=== PATIENT | male | born 1995 | race Caucasian/White ===

== ENCOUNTER 2020-01-24 18:43 | Emergency (ER) | payer OTHER ==
[2020-01-24] MEDS ORDERED: TETANUS & DIPHTHERIA TOX,ADULT 0.5 ML VIAL ONE (19:03)
[2020-01-24] MEDS ORDERED: LIDOCAINE 1% MPF 5 ML VIAL ONE (19:03)
--- NOTE | 2020-01-24 19:12 | ER ---
Nurse's Notes [facility] [place], [place] Name: Derrick Kirkland Age: 24 yrs Sex: Male : 1995 Arrival Date: 01/24/2020 Time: 18:44 Bed 26 Private MD: Diagnosis: Laceration without foreign body of left hand Presentation: 01/23 18:45 Chief complaint: Patient states: " I thought I could jump a fence." small hand ss laceration noted to L hand. No bleeding noted at this time. Unknown last tetanus. Coronavirus screen: Proceed with normal triage. Patient denies a cough. Patient denies shortness of breath or difficulty breathing. Patient denies measured and/or subjective temperature greater than 100.4F prior to today's visit. Patient denies travel on a cruise ship or to a country the [facility] currently lists as an affected area. Patient denies contact with known and/or suspected case of COVID-19. Ebola Screen: Patient denies exposure to infectious person. Patient denies travel to an Ebola-affected area in the 21 days before illness onset. Initial Sepsis Screen: Does the patient meet any 2 criteria? No. Patient's initial sepsis screen is negative. Does the patient have a suspected source of infection? No. Patient's initial sepsis screen is negative. Risk Assessment: Do you want to hurt yourself or someone else? Patient reports no desire to harm self or others. Onset of symptoms was January 24, 2020. 18:45 Method Of Arrival: Ambulatory ss 18:45 Acuity: DONAL 5 ss Triage Assessment: 19:00 General: Appears in no apparent distress. Historical: - Allergies: 18:47 No Known Allergies; ss - Home Meds: 18:47 None [Active]; ss - PMHx: 18:47 None; ss - PSHx: 18:47 None; ss - Immunization history:: Adult Immunizations unknown. - Social history:: Smoking status: Patient denies any tobacco usage or history of. - Family history:: not pertinent. Screenin:00 Fall Risk None identified. 23:11 Abuse screen: Denies threats or abuse. Nutritional screening: No deficits noted. Tuberculosis screening: No symptoms or risk factors identified. Assessment: 19:00 General: Appears in no apparent distress. Behavior is calm, cooperative, appropriate for age. Pain: Denies pain. Neuro: Level of Consciousness is awake, alert, obeys commands, Oriented to person, place, time, situation, Appropriate for age. Cardiovascular: Capillary refill < 3 seconds Patient's skin is warm and dry. Respiratory: Airway is patent Respiratory effort is even, unlabored. Derm: Skin laceration to left palm of hand Wound noted palm of left hand Wound is laceration. Musculoskeletal: Circulation, motion, and sensation intact. Capillary refill < 3 seconds. Vital Signs: 18:45 Resp 14; Weight 99.79 kg; Height 5 ft. 11 in. (180.34 cm); Pain 0/10; ss 18:45 Body Mass Index 30.68 (99.79 kg, 180.34 cm) ED Course: 18:44 Patient arrived in ED. 18:44 Joel Campa MD is Attending Physician. [facility] 18:47 Triage completed. 18:47 Arm band placed on right wrist. 18:53 Arlene Reyes, RN is Primary Nurse. 19:00 Patient has correct armband on for positive identification. Bed in low position. Call light in reach. 19:00 Assist provider with laceration repair on left hand that was 2.5 cm. or less using sutures. Set up tray. Performed by Joel Campa MD Dressed with Kerlix, Neosporin, Patient tolerated well. Patient did not have IV access during this emergency room visit. 19:43 Hand Left 2 View XRAY In Process Unspecified. EDMS Administered Medications: 18:55 Drug: Tetanus-Diphtheria Toxoid Adult 0.5 ml {Programming Internship: [email or web address]. Exp: 08/26/2021. Lot #: [id number]. } Route: IM; Site: right deltoid; 23:09 Follow up: Response: No adverse reaction 19:30 Drug: Neosporin Ointment 1 application Route: Topical; Site: affected area; 19:30 Drug: Lidocaine-Epinephrine -1%: (1:100,000) 3 ml {Note: Administered per dr jovanni mcmanus for lac repair.} Volume: 20 ml; Route: Infiltration; 19:30 Drug: KeFLEX 500 mg Route: PO; 23:09 Follow up: Response: Medication administered at discharge. Outcome: 19:12 Discharge ordered by . [facility] 19:45 Discharged to home ambulatory. 19:45 Condition: good 19:45 Discharge instructions given to patient, Instructed on discharge instructions, follow up and referral plans. medication usage, Demonstrated understanding of instructions, follow-up care, medications, wound care, Prescriptions given X 1. 19:59 Patient left the ED. Signatures: Dispatcher [employer] EDJoel Anand MD MD cha Smirch, Shelby, Mounika Parham RN, RN RN vc Harris, Amy, RN RN
--- NOTE | 2020-01-24 19:12 | EDPHYS ---
Physician Documentation [facility] [place] [facility] Name: Derrick Kirkland Age: 24 yrs Sex: Male : 1995 Arrival Date: 01/24/2020 Time: 18:44 Bed 26 Private MD: ED Physician Joel Campa HPI: 01/23 19:05 This 24 yrs old Male presents to ER via Ambulatory with complaints of Hand reshma Injury. 19:05 The patient or guardian reports decreased range of motion. The complaints affect the reshma left hand diffusely. Context: The problem was sustained at work, at a jumping a fence. Onset: The symptoms/episode began/occurred just prior to arrival. Modifying factors: The symptoms are alleviated by elevation, the symptoms are aggravated by movement. Associated signs and symptoms: The patient has no apparent associated signs or symptoms. Severity of symptoms: At their worst the symptoms were mild, in the emergency department the symptoms are unchanged. The patient has not experienced similar symptoms in the past. Historical: - Allergies: 18:47 No Known Allergies; ss - Home Meds: 18:47 None [Active]; ss - PMHx: 18:47 None; ss - PSHx: 18:47 None; ss - Immunization history:: Adult Immunizations unknown. - Social history:: Smoking status: Patient denies any tobacco usage or history of. - Family history:: not pertinent. ROS: 19:05 Constitutional: Negative for fever, chills, and weight loss, Eyes: Negative for injury, reshma pain, redness, and discharge, ENT: Negative for injury, pain, and discharge, Neck: Negative for injury, pain, and swelling, Cardiovascular: Negative for chest pain, palpitations, and edema, Respiratory: Negative for shortness of breath, cough, wheezing, and pleuritic chest pain, Abdomen/GI: Negative for abdominal pain, nausea, vomiting, diarrhea, and constipation, Back: Negative for injury and pain, : Negative for injury, bleeding, discharge, and swelling, Skin: Negative for injury, rash, and discoloration, Neuro: Negative for headache, weakness, numbness, tingling, and seizure, Psych: Negative for depression, anxiety, suicide ideation, homicidal ideation, and hallucinations, Allergy/Immunology: Negative for hives, rash, and allergies, Endocrine: Negative for neck swelling, polydipsia, polyuria, polyphagia, and marked weight changes. 19:05 MS/extremity: Positive for laceration, pain, of the palm of left hand. Exam: 19:05 Constitutional: This is a well developed, well nourished patient who is awake, alert, reshma and in no acute distress. Head/Face: Normocephalic, atraumatic. Eyes: Pupils equal round and reactive to light, extra-ocular motions intact. Lids and lashes normal. Conjunctiva and sclera are non-icteric and not injected. Cornea within normal limits. Periorbital areas with no swelling, redness, or edema. ENT: Nares patent. No nasal discharge, no septal abnormalities noted. Tympanic membranes are normal and external auditory canals are clear. Oropharynx with no redness, swelling, or masses, exudates, or evidence of obstruction, uvula midline. Mucous membranes moist. Neck: Trachea midline, no thyromegaly or masses palpated, and no cervical lymphadenopathy. Supple, full range of motion without nuchal rigidity, or vertebral point tenderness. No Meningismus. Chest/axilla: Normal chest wall appearance and motion. Nontender with no deformity. No lesions are appreciated. Cardiovascular: Regular rate and rhythm with a normal S1 and S2. No gallops, murmurs, or rubs. Normal PMI, no JVD. No pulse deficits. Respiratory: Lungs have equal breath sounds bilaterally, clear to auscultation and percussion. No rales, rhonchi or wheezes noted. No increased work of breathing, no retractions or nasal flaring. Abdomen/GI: Soft, non-tender, with normal bowel sounds. No distension or tympany. No guarding or rebound. No evidence of tenderness throughout. Back: No spinal tenderness. No costovertebral tenderness. Full range of motion. Skin: Warm, dry with normal turgor. Normal color with no rashes, no lesions, and no evidence of cellulitis. Neuro: Awake and alert, GCS 15, oriented to person, place, time, and situation. Cranial nerves II-XII grossly intact. Motor strength 5/5 in all extremities. Sensory grossly intact. Cerebellar exam normal. Normal gait. Psych: Awake, alert, with orientation to person, place and time. Behavior, mood, and affect are within normal limits. 19:05 Musculoskeletal/extremity: Extremities: noted in the palm of left hand: decreased ROM, laceration, pain. Vital Signs: 18:45 Resp 14; Weight 99.79 kg; Height 5 ft. 11 in. (180.34 cm); Pain 0/10; ss 18:45 Body Mass Index 30.68 (99.79 kg, 180.34 cm) ss Laceration: 19:05 Wound Repair of 1cm ( 0.4in ) subcutaneous laceration to left hand and palm of left reshma hand. Irregularly shaped.. Skin/tissue flap noted.. Distal neuro/vascular/tendon intact. Anesthesia: Local anesthetic administered with 5 mls of 1% lidocaine w/ Epi. Wound prep: Simple cleansing by ri. Skin closed with 2 2-0 Prolene using interrupted sutures and sterile technique. Dressed with Neosporin, non-adherent dressing. Patient tolerated well. MDM: 18:44 Patient medically screened. [facility] 19:05 Data reviewed: vital signs, nurses notes, radiologic studies, plain films. [facility] 01/23 19:10 Order name: Hand Left 2 View XRAY [facility] 01/23 18:45 Order name: Wound dressing; Complete Time: 23:05 [facility] 01/23 19:05 Order name: Prolene, Sutures; Complete Time: 19:18 [facility] 01/23 19:05 Order name: Dressing - Wound; Complete Time: 23:06 [facility] 01/23 19:05 Order name: Gloves, Sterile; Complete Time: 23:06 [facility] 01/23 19:05 Order name: Setup Suture Tray; Complete Time: 23:06 [facility] Administered Medications: 18:55 Drug: Tetanus-Diphtheria Toxoid Adult 0.5 ml {Seed Tester: [employer]. Exp: 08/26/2021. Lot #: [id number]. } Route: IM; Site: right deltoid; 23:09 Follow up: Response: No adverse reaction 19:30 Drug: Neosporin Ointment 1 application Route: Topical; Site: affected area; 19:30 Drug: Lidocaine-Epinephrine -1%: (1:100,000) 3 ml {Note: Administered per dr jovanni mcmanus for lac repair.} Volume: 20 ml; Route: Infiltration; 19:30 Drug: KeFLEX 500 mg Route: PO; 23:09 Follow up: Response: Medication administered at discharge. Disposition: 01/24/20 19:12 Discharged to Home. Impression: Laceration without foreign body of left hand. - Condition is Stable. - Discharge Instructions: Laceration Care, Adult, Laceration Care, Adult, [id number]. - Prescriptions for Keflex 500 mg Oral Capsule - take 1 capsule by ORAL route every 6 hours for 7 days; 28 capsule. - Medication Reconciliation Form, Thank You Letter, Antibiotic Education, Prescription Opioid Use form. - Follow up: Private Physician; When: 5 - 6 days; Reason: Recheck today's complaints, Re-evaluation by your physician. - Problem is new. - Symptoms have improved. Signatures: Dispatcher [employer] EDMS Joel Campa MD MD cha Smirch, Shelby RN RN ss Mounika Pace RN RN Arlene Hutchins RN RN Corrections: (The following items were deleted from the chart) 19:59 19:12 01/24/2020 19:12 Discharged to Home. Impression: Laceration without foreign body vc of left hand. Condition is Stable. Forms are Medication Reconciliation Form, Thank You Letter, Antibiotic Education, Prescription Opioid Use. Follow up: Private Physician; When: 5 - 6 days; Reason: Recheck today's complaints, Re-evaluation by your physician. Problem is new. Symptoms have improved. reshma
[2020-01-24] MEDS ORDERED: LIDOCAINE 1% W/EPI 1:100,000 MDV 20 ML VIAL ONE (19:28)
[2020-01-24] MEDS ORDERED: CEPHALEXIN 250 MG CAP ONE (19:33)
--- NOTE | 2020-01-24 19:57 | RAD REPORT ---
EXAM DESCRIPTION: RAD - Hand Left 2 View - 01/24/2020 7:42 pm CLINICAL HISTORY: Left hand pain status post injury FINDINGS: No fracture or dislocation is seen. A limited two-view series was obtained
== END 2020-01-24 19:59 | disposition home or self-care (01) ==
LOC: ER 18:43
PROC: 0JQK0ZZ Repair Left Hand Subcutaneous Tissue and Fascia, Open Approach (ICD-10-PCS; principal; 2020-01-24)
DX: S61.412A Laceration without foreign body of left hand, initial encounter (principal); W45.8XXA Other foreign body or object entering through skin, initial encounter; Y93.89 Activity, other specified; Y92.89 Other specified places as the place of occurrence of the external cause; Y99.8 Other external cause status
CPT/HCPCS: 90471; 90714; 99283

== ENCOUNTER 2020-09-28 00:46 | Emergency (ER) | payer OTHER ==
--- OUTSIDE RECORDS SUMMARY | 2020-09-28 00:49 | XMS REPORT | Continuity of Care Document ---
:1995 Author Organization [facility] t Address [address] [place] [address] Care Team Providers Name Role Phone Unavailable Unavailable Unavailable Problems This patient has no known problems. Allergies, Adverse Reactions, Alerts This patient has no known allergies or adverse reactions. Medications This patient has no known medications. Procedures This patient has no known procedures. Results This patient has no known results.
[2020-09-28] MEDS ORDERED: ONDANSETRON 4 MG/2 ML VIAL ONE (01:33)
[2020-09-28] MEDS ORDERED: MORPHINE 4 MG/ML SYR ONE (01:33)
[2020-09-28] MEDS ORDERED: NA CHLORIDE 0.9% 1,000 ML ONE (01:33)
[2020-09-28] MEDS ORDERED: KETOROLAC 30 MG/ML INJ ONE (01:48)
[2020-09-28 02:12] LABS: Absolute Lymphocytes (CBC) 3.6 K/uL (0.7-4.9); Basophils % 0.7 % (0-1.3); Hematocrit 43.6 % (39.6-49.0); Lymphocytes % 33.1 % (15.3-44.8); MPV 10.9 fL (7.6-11.3); RBC Red Blood Cell Count 4.79 M/uL (4.33-5.43)
[2020-09-28 02:32] LABS: Urine Blood 3+ (NEG); Urine Glucose NEGATIVE (NEG); Urine Protein 1+ (NEG); Urine Specific Gravity >1.030 (1.005-1.030); Urine pH 5.5 (5.0-7.0)
[2020-09-28 02:57] LABS: ALT/SGPT 35 U/L (12-78); AST/SGOT 17 U/L (15-37); Albumin 3.8 g/dL (3.4-5.0); BUN Blood Urea Nitrogen 19 mg/dL (7-18); Bicarbonate 26 mmol/L (21-32); Bilirubin Direct < 0.1 mg/dL (0-0.2); Bilirubin Total 0.4 mg/dL (0.2-1.0); Glucose Level 106 mg/dL (74-106); Lipase 117 U/L (73-393); Potassium 3.6 mmol/L (3.5-5.1); Protein, Total 7.3 g/dL (6.4-8.2); Sodium Level 143 mmol/L (136-145)
[2020-09-28 02:59] LABS: Alkaline Phosphatase ND U/L (45-117)
--- NOTE | 2020-09-28 03:22 | ER ---
Nurse's Notes [facility] [place], [place] Name: Derrick Kirkland Age: 25 yrs Sex: Male : 1995 Arrival Date: 09/28/2020 Time: 00:47 Bed 6 Private MD: Diagnosis: Ureterolithiasis Presentation: 09/28 01:13 Chief complaint: Patient states: both flank pain ,abdominal pain and vomiting today. mg2 Coronavirus screen: Client denies travel out of the [place] in the last 14 days. Ebola Screen: No symptoms or risks identified at this time. Initial Sepsis Screen: Does the patient meet any 2 criteria? No. Patient's initial sepsis screen is negative. Does the patient have a suspected source of infection? No. Patient's initial sepsis screen is negative. Risk Assessment: Do you want to hurt yourself or someone else? Patient reports no desire to harm self or others. Onset of symptoms was September 28, 2020. 01:13 Method Of Arrival: Ambulatory mg2 01:13 Acuity: DONAL 3 mg2 Triage Assessment: 01:15 General: Behavior is restless. mg2 Historical: - Allergies: 01:15 No Known Allergies; mg2 - Home Meds: 01:15 None [Active]; mg2 - PMHx: 01:15 None; mg2 - PSHx: 01:15 None; mg2 - Immunization history:: Flu vaccine status is unknown. - Social history:: Smoking status: Patient denies any tobacco usage or history of. Patient/guardian denies using alcohol, street drugs, IV drugs. Screenin:50 Abuse screen: Denies threats or abuse. Denies injuries from another. Nutritional wh screening: No deficits noted. Tuberculosis screening: No symptoms or risk factors identified. Fall Risk None identified. Assessment: 01:48 General: Appears in no apparent distress. uncomfortable, Behavior is cooperative, wh appropriate for age, listless. Pain: Complains of pain in left lower quadrant Pain does not radiate. Pain currently is 9 out of 10 on a pain scale. Pain began 1 hour ago. Neuro: Level of Consciousness is awake, alert, obeys commands, Oriented to person, place, time, situation, Appropriate for age. Cardiovascular: Capillary refill < 3 seconds. Respiratory: Airway is patent Respiratory effort is even, unlabored, Respiratory pattern is regular, symmetrical. GI: Abdomen is flat, non-distended, Abd is soft Reports lower abdominal pain. : No signs and/or symptoms were reported regarding the genitourinary system. EENT: No signs and/or symptoms were reported regarding the EENT system. Derm: Skin is intact, is healthy with good turgor, Skin is pink, warm \T\ dry. normal. Musculoskeletal: Circulation, motion, and sensation intact. 03:00 Reassessment: Patient appears in no apparent distress at this time. Patient is alert, rr5 oriented x 3, equal unlabored respirations, skin warm/dry/pink. awaiting for result Patient states feeling better. Patient states symptoms have improved. 03:30 Reassessment: Patient appears in no apparent distress at this time. Patient is alert, rr5 oriented x 3, equal unlabored respirations, skin warm/dry/pink. discharge instruction given and explained without complaints made. Vital Signs: 01:13 Pulse 99; Resp 18; Temp 98.4; Pulse Ox 100% on R/A; Weight 108.86 kg; Height 5 ft. 11 mg2 in. (180.34 cm); 01:50 BP 117 / 76; Pulse 69; Resp 18; Pulse Ox 96% on R/A; wh 03:10 BP 94 / 60; Pulse 60; Resp 19; Pulse Ox 99% ; rr5 01:13 Body Mass Index 33.47 (108.86 kg, 180.34 cm) mg2 ED Course: 00:47 Patient arrived in ED. cl3 01:10 Rafael Samuels, ELISSA is Primary Nurse. rr5 01:12 José Miguel Georges MD is Attending Physician. mh7 01:15 Triage completed. mg2 01:15 Arm band placed on. mg2 01:20 Inserted saline lock: 20 gauge in right antecubital area, using aseptic technique. rr5 01:50 Patient has correct armband on for positive identification. Placed in gown. Bed in low wh position. Call light in reach. Side rails up X 1. Pulse ox on. NIBP on. 02:10 CT Stone Protocol In Process Unspecified. EDMS 03:21 Titus Dodson MD is Referral Physician. mh7 03:37 No provider procedures requiring assistance completed. IV discontinued, intact, wh bleeding controlled, No redness/swelling at site. Administered Medications: 01:25 Drug: Zofran (Ondansetron) 4 mg Route: IVP; Site: right forearm; rr5 02:19 Follow up: Response: No adverse reaction; Nausea is decreased 01:29 Drug: NS 0.9% 1000 ml Route: IV; Rate: 1000 ml; Site: right antecubital; rr5 02:19 Follow up: Response: No adverse reaction; IV Status: Completed infusion 01:29 Drug: morphine 4 mg {Note: rass 0.} Route: IVP; Site: right forearm; rr5 02:19 Follow up: Response: No adverse reaction; Pain is decreased; RASS: Alert and Calm (0) 01:36 Drug: TORadol 30 mg Route: IVP; Site: right antecubital; 02:19 Follow up: Response: No adverse reaction; Pain is decreased Outcome: 03:22 Discharge ordered by . [email or web address] 03:37 Discharged to home ambulatory. 03:37 Condition: stable 03:37 Discharge instructions given to patient, Instructed on discharge instructions, follow up and referral plans. no drinking with medication, no driving heavy equipment, medication usage, POC Demonstrated understanding of instructions, follow-up care, medications, POC Prescriptions given X 4. 03:38 Patient left the ED. Signatures: Dispatcher [employer] EDMS Julisa Padilla RN RN Robby Hernández RN RN mg2 Rafael Samuels RN RN rr5 Nikko David cl3 José Miguel Georges MD MD mh7 Corrections: (The following items were deleted from the chart) 01:15 01:13 Chief complaint: Patient states: both flank pain and vomiting today. mg2 mg2
--- NOTE | 2020-09-28 03:23 | EDPHYS ---
Physician Documentation [facility] Name: Derrick Kirkland Age: 25 yrs Sex: Male : 1995 Arrival Date: 09/28/2020 Time: 00:47 Bed 6 Private MD: ED Physician José Miguel Georges HPI: 09/28 01:37 This 25 yrs old Male presents to ER via Ambulatory with complaints of Side mh7 Pain. 01:37 The patient presents with abdominal pain in the left lower quadrant. Onset: The mh7 symptoms/episode began/occurred today, at 00:00. The symptoms radiate to the left flank. Associated signs and symptoms: Pertinent positives: nausea and vomiting, Pertinent negatives: anorexia, blood in stools, chest pain, constipation, diarrhea, dysuria, fever, headache, hematuria, palpitations, shortness of breath, testicular pain, vomiting blood. The symptoms are described as constant, vague, waxing/waning. Modifying factors: The symptoms are alleviated by nothing, the symptoms are aggravated by nothing. Severity of pain: At its worst the pain was moderate today, in the emergency department the pain is unchanged. Historical: - Allergies: 01:15 No Known Allergies; mg2 - Home Meds: 01:15 None [Active]; mg2 - PMHx: 01:15 None; mg2 - PSHx: 01:15 None; mg2 - Immunization history:: Flu vaccine status is unknown. - Social history:: Smoking status: Patient denies any tobacco usage or history of. Patient/guardian denies using alcohol, street drugs, IV drugs. ROS: 01:37 Constitutional: Negative for fever, chills, and weight loss, Eyes: Negative for injury, mh7 pain, redness, and discharge, ENT: Negative for injury, pain, and discharge, Neck: Negative for injury, pain, and swelling, Cardiovascular: Negative for chest pain, palpitations, and edema, Respiratory: Negative for shortness of breath, cough, wheezing, and pleuritic chest pain, : Negative for injury, bleeding, discharge, and swelling, MS/Extremity: Negative for injury and deformity, Skin: Negative for injury, rash, and discoloration, Neuro: Negative for headache, weakness, numbness, tingling, and seizure, Psych: Negative for depression, anxiety, suicide ideation, homicidal ideation, and hallucinations, Allergy/Immunology: Negative for hives, rash, and allergies, Endocrine: Negative for neck swelling, polydipsia, polyuria, polyphagia, and marked weight changes, Hematologic/Lymphatic: Negative for swollen nodes, abnormal bleeding, and unusual bruising. Exam: 01:37 Head/Face: Normocephalic, atraumatic. Eyes: Pupils equal round and reactive to light, mh7 extra-ocular motions intact. Lids and lashes normal. Conjunctiva and sclera are non-icteric and not injected. Cornea within normal limits. Periorbital areas with no swelling, redness, or edema. Neck: Trachea midline, no thyromegaly or masses palpated, and no cervical lymphadenopathy. Supple, full range of motion without nuchal rigidity, or vertebral point tenderness. No Meningismus. Chest/axilla: Normal chest wall appearance and motion. Nontender with no deformity. No lesions are appreciated. Cardiovascular: Regular rate and rhythm with a normal S1 and S2. No gallops, murmurs, or rubs. Normal PMI, no JVD. No pulse deficits. Respiratory: Lungs have equal breath sounds bilaterally, clear to auscultation and percussion. No rales, rhonchi or wheezes noted. No increased work of breathing, no retractions or nasal flaring. 01:37 Skin: Warm, dry with normal turgor. Normal color with no rashes, no lesions, and no evidence of cellulitis. MS/ Extremity: Pulses equal, no cyanosis. Neurovascular intact. Full, normal range of motion. Neuro: Awake and alert, GCS 15, oriented to person, place, time, and situation. Cranial nerves II-XII grossly intact. Motor strength 5/5 in all extremities. Sensory grossly intact. Cerebellar exam normal. Normal gait. Psych: Awake, alert, with orientation to person, place and time. Behavior, mood, and affect are within normal limits. 01:37 Constitutional: The patient appears in no acute distress, alert, awake, uncomfortable. 01:37 Abdomen/GI: Inspection: abdomen appears normal, Bowel sounds: normal, in all quadrants, Palpation: moderate abdominal tenderness, in the left lower quadrant, Rectal exam: the exam is deferred, because of patient request, Indicators: McBurney's point is not tender, Albrecht's sign is negative, Rovsing's sign is negative, Obturator sign is negative, Psoas sign is negative, Liver: no appreciated palpable abnormalities, Hernia: not appreciated. 01:37 Back: ROM is normal, normal spinal alignment noted, CVA tenderness, that is moderate, is noted on the left, muscle spasm, is not present. Vital Signs: 01:13 Pulse 99; Resp 18; Temp 98.4; Pulse Ox 100% on R/A; Weight 108.86 kg; Height 5 ft. 11 mg2 in. (180.34 cm); 01:50 BP 117 / 76; Pulse 69; Resp 18; Pulse Ox 96% on R/A; wh 03:10 BP 94 / 60; Pulse 60; Resp 19; Pulse Ox 99% ; rr5 01:13 Body Mass Index 33.47 (108.86 kg, 180.34 cm) mg2 MDM: 03:20 Differential diagnosis: bowel obstruction, diverticulitis, non-specific abd pain, mh7 Ureterolithiasis, urinary tract infection. Data reviewed: vital signs, nurses notes, lab test result(s), CBC, electrolytes, urinalysis, radiologic studies, CT scan. Data interpreted: Pulse oximetry: on room air is 99 %. Interpretation: normal. Counseling: I had a detailed discussion with the patient and/or guardian regarding: the historical points, exam findings, and any diagnostic results supporting the discharge/admit diagnosis, lab results, radiology results, the need for outpatient follow up, a urologist, to return to the emergency department if symptoms worsen or persist or if there are any questions or concerns that arise at home. Response to treatment: the patient's symptoms have resolved after treatment, the patient's blood pressure is in an acceptable range, mental status has returned to baseline, the patient no longer shows bradycardia, the patient is not short of breath, the patient is not tachycardic, the patient's pain is gone, the patient's temperature has normalized. 03:22 Patient medically screened. 7 09/28 01:10 Order name: Basic Metabolic Panel; Complete Time: 02:59 rr5 09/28 01:10 Order name: CBC with Diff; Complete Time: 02:59 rr5 09/28 01:10 Order name: Hepatic Function; Complete Time: 02:59 rr5 09/28 01:10 Order name: Lipase; Complete Time: 02:59 rr5 09/28 01:17 Order name: CT Stone Protocol 7 09/28 02:26 Order name: Urine Dipstick--Ancillary (enter results); Complete Time: 02:59 mw2 09/28 01:10 Order name: IV Saline Lock; Complete Time: 01:26 rr5 09/28 01:10 Order name: Labs collected and sent; Complete Time: 01:26 [facility] 09/28 01:17 Order name: Urine Dipstick-Ancillary (obtain specimen); Complete Time: 02:20 [facility] Administered Medications: 01:25 Drug: Zofran (Ondansetron) 4 mg Route: IVP; Site: right forearm; rr5 02:19 Follow up: Response: No adverse reaction; Nausea is decreased 01:29 Drug: NS 0.9% 1000 ml Route: IV; Rate: 1000 ml; Site: right antecubital; rr5 02:19 Follow up: Response: No adverse reaction; IV Status: Completed infusion 01:29 Drug: morphine 4 mg {Note: rass 0.} Route: IVP; Site: right forearm; rr5 02:19 Follow up: Response: No adverse reaction; Pain is decreased; RASS: Alert and Calm (0) 01:36 Drug: TORadol 30 mg Route: IVP; Site: right antecubital; 02:19 Follow up: Response: No adverse reaction; Pain is decreased Disposition: 09/28/20 03:22 Discharged to Home. Impression: Ureterolithiasis. - Condition is Stable. - Discharge Instructions: Kidney Stones, [id number]. - Prescriptions for Zofran ODT 4 mg Oral tablet,disintegrating - place 1 tablet by TRANSLINGUAL route every 8 hours As needed; 6 tablet. ketorolac 10 mg Oral tablet - take 1 tablet by ORAL route every 8 hours As needed not to exceed 40 mg in 24hrs; 15 tablet. Tylenol- Codeine #3 300-30 mg Oral Tablet - take 2 tablets by ORAL route every 6 hours As needed; 20 tablet. Flomax 0.4 mg Oral Capsule, Sust. Release 24 hr - take 1 capsule by ORAL route once daily 1/2 hour following the same meal each day; 7 capsule. - Work release form, Medication Reconciliation Form, Thank You Letter, Antibiotic Education, Prescription Opioid Use form. - Follow up: Private Physician; When: 1 - 2 days; Reason: Worsening of condition, Recheck today's complaints, Continuance of care, Re-evaluation by your physician. Follow up: Titus Dodson MD; When: 1 - 2 days; Reason: Worsening of condition, Recheck today's complaints. - Problem is new. - Symptoms have improved. Signatures: Dispatcher [employer] EDMS Julisa Padilla RN RN Robby Hernández RN RN [facility] Rafael Samuels RN RN 5 José Miguel Georges MD MD mh7 Corrections: (The following items were deleted from the chart) 03:38 03:22 09/28/2020 03:22 Discharged to Home. Impression: Ureterolithiasis. Condition is wh Stable. Forms are Medication Reconciliation Form, Thank You Letter, Antibiotic Education, Prescription Opioid Use. Follow up: Private Physician; When: 1 - 2 days; Reason: Worsening of condition, Recheck today's complaints, Continuance of care, Re-evaluation by your physician. Follow up: Titus Dodson; When: 1 - 2 days; Reason: Worsening of condition, Recheck today's complaints. Problem is new. Symptoms have improved. mh7
[2020-09-28 03:47] VITALS: TEMP 98.4
[2020-09-28 03:49] VITALS: BP 94/60; O2SAT 99
--- NOTE | 2020-09-28 12:29 | RAD REPORT ---
EXAM DESCRIPTION: CT - Stone Protocol - 09/28/2020 6:47 am COMPARISON: None. CLINICAL HISTORY: [facility] MAIN Abd pain;Flank pain TECHNIQUE: CT of the abdomen and pelvis was acquired without IV contrast material, according to the renal stone protocol. Coronal and sagittal reconstructions were obtained. Automated exposure contro l was utilized on this examination as a dose lowering technique. FINDINGS: Lung bases: Clear. *Limited evaluation of the solid organs due to lack of IV contrast. Liver: Normal. Gallbladder and biliary: Normal gallbladder. Unremarkable biliary tree. Pancreas: Normal. Spleen: Normal. Adrenal glands: Normal. Kidneys and ureters: There is a 2 mm obstructing calculus of the distal left ureter with minimal left hydronephrosis. The right kidney is normal. Stomach and Small Bowel: The stomach and small bowel are normal. Urinary bladder: Normal. Prostate/Male Urogenital: Normal. Colon and Appendix: The colon is unremarkable. No evidence of appendicitis. Peritoneal cavity: No ascites or free air. Retroperitoneum and lymph nodes: Normal. Vascular: Normal. Musculoskeletal and soft tissues: Soft tissues are unremarkable. No aggressive bone lesions. No com pression fracture. IMPRESSION: 2 mm obstructing calculus of the distal left ureter with minimal left hydronephrosis. Electronically signed by: Maikel Mackenzie MD 09/28/2020 2:19 AM CDT Due to temporary technical issues with the PACS/Fluency reporting system, reports are being signed by the in house radiologists without review as a courtesy to insure prompt reporting. The interpreting radiologist is fully responsible for the content of the report.
== END 2020-09-28 03:38 | disposition home or self-care (01) ==
LOC: ER 00:46
DX: N20.1 Calculus of ureter (principal)
CPT/HCPCS: 85025; 80048; 36415; 80076; 81003; 83690; 76377; 74176; 99284; J2405; J7030

== ENCOUNTER 2021-03-01 20:08 | Emergency (ER) | payer OTHER ==
--- OUTSIDE RECORDS SUMMARY | 2021-03-01 20:10 | XMS REPORT | Continuity of Care Document ---
:[address] [facility] t Address [address] [place] [address] Care Team Providers Name Role Phone Unavailable Unavailable Unavailable Problems This patient has no known problems. Allergies, Adverse Reactions, Alerts This patient has no known allergies or adverse reactions. Medications This patient has no known medications. Procedures This patient has no known procedures. Results This patient has no known results.
[2021-03-01] MEDS ORDERED: ACETAMINOPHEN 500 MG TAB ONE (21:04)
--- NOTE | 2021-03-01 22:13 | EDPHYS ---
Physician Documentation [facility] Name: Derrick Kirkland Age: 25 yrs Sex: Male : 1995 Arrival Date: 03/01/2021 Time: 20:11 Bed Waiting Private MD: ED Physician José Miguel Georges HPI: 03/01 22:11 This 25 yrs old Male presents to ER via Ambulatory with complaints of Fever, jmm Weakness. 22:11 Onset: The symptoms/episode began/occurred gradually, 5 day(s) ago. Modifying factors: jmm The patient has had contact with sick spouse. Associated signs and symptoms:. Is a 25-year-old male no chronic medical conditions presents emerged part with complaints of cough, weakness, fatigue beginning approximately 5 days ago.. Historical: - Allergies: 20:35 No Known Allergies; kg - Home Meds: 20:35 None [Active]; kg - PMHx: 20:35 None; kg - PSHx: 20:35 None; kg - Immunization history:: Adult Immunizations not immunized, Client reports having NOT received the Covid vaccine. - Social history:: Smoking status: Patient denies any tobacco usage or history of. ROS: 22:11 Constitutional: Positive for body aches, fever, malaise. jmm 22:11 Respiratory: Positive for cough. 22:11 All other systems are negative. Exam: 22:11 Constitutional: This is a well developed, well nourished patient who is awake, alert, jmm and in no acute distress. Head/Face: atraumatic. Eyes: EOMI, no conjunctival erythema appreciated ENT: Moist Mucus Membranes Neck: Trachea midline, Supple Chest/axilla: Normal chest wall appearance and motion. Cardiovascular: Regular rate and rhythm. No edema appreciated Respiratory: Normal respirations, no respiratory distress appreciated Abdomen/GI: Non distended, soft Back: Normal ROM Skin: General appearance color normal MS/ Extremity: Moves all extremities, no obvious deformities appreciated, no edema noted to the lower extremities Neuro: Awake and alert, normal gait Psych: Behavior is normal, Mood is normal, Patient is cooperative and pleasant Vital Signs: 20:34 BP 118 / 79; Pulse 96; Resp 20; Temp 101.1(O); Pulse Ox 98% on R/A; Weight 108.86 kg kg (R); Height 5 ft. 11 in. (180.34 cm) (R); Pain 0/10; 22:15 Temp 99.4(O); kg 20:34 Body Mass Index 33.47 (108.86 kg, 180.34 cm) kg MDM: 22:08 Patient medically screened. sarah 22:12 Data reviewed: vital signs, nurses notes. Counseling: I had a detailed discussion with sarah the patient and/or guardian regarding: the historical points, exam findings, and any diagnostic results supporting the discharge/admit diagnosis, lab results, the need for outpatient follow up, to return to the emergency department if symptoms worsen or persist or if there are any questions or concerns that arise at home. ED course: Patient is alert and nontoxic in appearance in the ER. I discussed all labs and imaging studies with the patient. Patient will follow up with their primary care provider. Patient understood and agrees with plan of care.. 03/01 20:38 Order name: Influenza Screen (A ; Complete Time: 00:45 EDMS 03/01 22:00 Order name: SARS-COV-2 RT PCR; Complete Time: 00:45 EDMS Administered Medications: 20:42 Drug: Tylenol 500 mg Route: PO; kg 22:15 Follow up: Response: No adverse reaction; Temperature is decreased kg 20:42 Drug: Tylenol 500 mg Route: PO; kg 22:15 Follow up: Response: Temperature is decreased kg Disposition: 03/02 03:18 Co-signature as Attending Physician, José Miguel Georges MD. mh7 Disposition Summary: 03/01/21 22:13 Discharge Ordered Location: Home [facility] Condition: Stable [facility] Diagnosis - Coronavirus infection, unspecified [facility] Followup: [facility] - With: Private Physician - When: 2 - 3 days - Reason: Recheck today's complaints, Continuance of care, Re-evaluation by your physician Discharge Instructions: - Discharge Summary Sheet tabitha - COVID-19 [facility] Forms: - Medication Reconciliation Form [facility] - Thank You Letter [facility] - Antibiotic Education [facility] - Prescription Opioid Use [facility] Signatures: Dispatcher [employer] EDMS Miguel Angel Gonzalez PA PA jmm Holmes, Maurice, MD MD mh7 Jami Estrada, RN RN kg Corrections: (The following items were deleted from the chart) 03/01 20:48 20:39 Influenza Screen (A \T\ B)+[email or web address] ordered. EDMS EDMS
--- NOTE | 2021-03-01 22:13 | ER ---
Nurse's Notes [facility] Name: Derrick Kirkland Age: 25 yrs Sex: Male : 1995 Arrival Date: 03/01/2021 Time: 20:11 Bed Waiting Private MD: Diagnosis: Coronavirus infection, unspecified Presentation: 03/01 20:34 Chief complaint: Patient states: Fever, dizziness x 5 days. Coronavirus screen: Client kg denies travel out of the [place] in the last 14 days. At this time, unable to obtain information related to travel outside the [place] Client presents with at least one sign or symptom that may indicate coronavirus-19. Standard/surgical mask placed on the client. Provider contacted for isolation considerations. Ebola Screen: Patient negative for fever greater than or equal to 101.5 degrees Fahrenheit, and additional compatible Ebola Virus Disease symptoms Patient denies exposure to infectious person. Patient denies travel to an Ebola-affected area in the 21 days before illness onset. Initial Sepsis Screen: Does the patient meet any 2 criteria? No. Patient's initial sepsis screen is negative. Does the patient have a suspected source of infection? No. Patient's initial sepsis screen is negative. Risk Assessment: Do you want to hurt yourself or someone else? Patient reports no desire to harm self or others. 20:34 Method Of Arrival: Ambulatory kg 20:34 Acuity: DONAL 4 kg 20:35 Onset of symptoms was February 24, 2021. kg Triage Assessment: 22:37 General: Appears in no apparent distress. Behavior is calm, cooperative, appropriate kg for age, quiet. Pain: Denies pain. Historical: - Allergies: 20:35 No Known Allergies; kg - Home Meds: 20:35 None [Active]; kg - PMHx: 20:35 None; kg - PSHx: 20:35 None; kg - Immunization history:: Adult Immunizations not immunized, Client reports having NOT received the Covid vaccine. - Social history:: Smoking status: Patient denies any tobacco usage or history of. Screenin:37 Abuse screen: Denies threats or abuse. Denies injuries from another. Nutritional kg screening: No deficits noted. Tuberculosis screening: No symptoms or risk factors identified. Fall Risk None identified. Vital Signs: 20:34 BP 118 / 79; Pulse 96; Resp 20; Temp 101.1(O); Pulse Ox 98% on R/A; Weight 108.86 kg kg (R); Height 5 ft. 11 in. (180.34 cm) (R); Pain 0/10; 22:15 Temp 99.4(O); kg 20:34 Body Mass Index 33.47 (108.86 kg, 180.34 cm) kg ED Course: 20:11 Patient arrived in ED. bp1 20:35 Triage completed. kg 20:43 Influenza Screen (A Sent. kg 22:00 Miguel Angel Gonzalez PA is PHCP. [facility] 22:00 José Miguel Georges MD is Attending Physician. [facility] 22:37 No provider procedures requiring assistance completed. Patient did not have IV access kg during this emergency room visit. 22:37 Arm band placed on right wrist. kg 22:37 Patient has correct armband on for positive identification. kg Administered Medications: 20:42 Drug: Tylenol 500 mg Route: PO; kg 22:15 Follow up: Response: No adverse reaction; Temperature is decreased kg 20:42 Drug: Tylenol 500 mg Route: PO; kg 22:15 Follow up: Response: Temperature is decreased kg Outcome: 22:13 Discharge ordered by . [facility] 22:37 Discharged to home ambulatory. kg 22:37 Condition: good 22:37 Condition: improved 22:37 Discharge instructions given to patient, Instructed on discharge instructions, follow up and referral plans. Demonstrated understanding of instructions, follow-up care, medications, Following a medical screening exam, the patient was provided information regarding alternative care sites and resources available per registration personnel. 22:38 Patient left the ED. kg Signatures: Miguel Angel Gonzalez PA PA María Elena Jackson Kristen, ELISSA RN kg Corrections: (The following items were deleted from the chart) 20:48 20:42 Influenza Screen (A \T\ B)+[id number] drawn and sent. kg EDMS
[2021-03-01 22:48] VITALS: BP 118/79; O2SAT 98
[2021-03-01 22:49] VITALS: TEMP 99.4
== END 2021-03-01 22:38 | disposition home or self-care (01) ==
LOC: ER 20:08
DX: U07.1 COVID-19 (principal)
CPT/HCPCS: 87804 ×2; 99283; U0003